=== PATIENT | female | born 1935 | race Caucasian/White ===

== ENCOUNTER → 2016-09-03 | Outpatient (CLI) | payer OTHER ==
[~2016-09-03] MED LIST: ASPCH81X PO; B COCAP3 PO; CEPH500C PO; CHOL1CAP57 PO; EPP3/2 IM; LORA-741 PO; LOSA50TA6 PO; MISCCAP80 PO; OMEP40CA PO; PRVC/40 PO; TRAM-10 PO
== END | disposition home or self-care (01) ==
LOC: C.LABSPEC 17:15
PROVIDERS: ATTEND Nurse Practitioner Adult Health
DX: R32 Unspecified urinary incontinence (principal)

== ENCOUNTER → 2016-10-01 | Outpatient (CLI) | payer OTHER ==
--- NOTE | 2016-10-01 09:51 | DIAGNOSTIC IMAGING REPORT ---
MRI LUMBAR SPINE W/O CONTRAST CLINICAL HISTORY: Severe low back pain with right leg radiculopathy. TECHNIQUE: Sagittal and axial T1, T2 and STIR images were obtained. The patient was imaged under 0.7 Jodi open MRI scanner COMPARISON STUDY: Conventional radiographic study the lumbar spine dated 08/04/2016 OBSERVATIONS: There is a superior endplate L1 compression deformity with T1 and T2 weighted marrow edema. The findings are consistent with acute/subacute fracture. The vertebral body has lost approximately one third of its height centrally. There is very minimal retropulsion with no spinal canal compromise L1-2: No disc protrusions or extrusions. No evidence of spinal canal or neural foraminal compromise. L2-3: There is facet joint arthropathy with indentation of the posterior lateral aspect the thecal sac. No disc herniations are visualized. There is no foraminal stenosis L3-4: There is facet joint arthropathy with mild indentation the posterior lateral aspects of the thecal sac. There is no focal herniation. There is no foraminal narrowing. L4-5: There is a grade 1 spondylolisthesis of L4 on L5. No focal herniations are visualized. There is no significant spinal or foraminal stenosis. L5-S1: There is no focal herniation. There is no spinal or foraminal stenosis. 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 The conus medullaris and cauda equina appear normal. IMPRESSION: 1. Acute/subacute superior endplate L1 compression fracture 2. Mild multilevel spondylitic changes. 3. No focal disc herniations identified Electronically signed by: Alvarado Singleton M.D. 10/01/2016 9:50 AM Dictated Date/Time: 10/01/2016 9:42 AM
== END | disposition home or self-care (01) ==
LOC: C.OPENMRI 08:38
PROVIDERS: ATTEND Pain Medicine Interventional Pain Medicine
DX: M48.06 Spinal stenosis, lumbar region (principal); S32.010A Wedge compression fracture of first lumbar vertebra, initial encounter for closed fracture; X58.XXXA Exposure to other specified factors, initial encounter

== ENCOUNTER → 2016-11-05 | Outpatient (CLI) | payer OTHER ==
[2016-11-05 12:58] LABS: ALT/SGPT 27 U/L (12-78); BLOOD UREA NITROGEN 25 mg/dl (7-18); BUN/CREATININE RATIO 28.8 (10-20); CALCIUM 8.9 mg/dl (8.5-10.1); CARBON DIOXIDE 25 mmol/L (21-32); CHLORIDE 112 mmol/L (98-107); CHOLESTEROL 178 mg/dl (0-200); CREATININE 0.88 mg/dl (0.60-1.20); GLUCOSE 77 mg/dl (70-99); POTASSIUM 3.7 mmol/L (3.5-5.1); SODIUM 146 mmol/L (136-145); TRIGLYCERIDES 141 mg/dl (0-150); VERY LOW DENSITY LIPOPROT CALC 28 mg/dl
[2016-11-05 13:04] LABS: ALKALINE PHOSPHATASE 63 U/L (45-117); AST/SGOT 12 U/L (15-37); CHOLESTEROL/HDL RATIO 4.3; HDL CHOLESTEROL 41 mg/dl; LDL CHOLESTEROL CALCULATED 109 mg/dl
== END | disposition home or self-care (01) ==
LOC: C.LABBFT 08:15
PROVIDERS: ATTEND Internal Medicine
DX: I10 Essential (primary) hypertension (principal); E78.5 Hyperlipidemia, unspecified

== ENCOUNTER → 2016-12-24 | Outpatient (CLI) | payer OTHER ==
--- NOTE | 2016-12-24 14:53 | MAMMOGRAPHY REPORT ---
UNILATERAL RIGHT DIGITAL DIAGNOSTIC MAMMOGRAM TOMOSYNTHESIS WITH CAD: 12/24/2016 CLINICAL HISTORY: 6 Month Follow-up Right. TECHNIQUE: Breast tomosynthesis in addition to standard 2D mammography was performed. Current study was also evaluated with a Computer Aided Detection (CAD) system. Right CC and MLO 2-D and tomosynt hesis images were obtained. COMPARISON: Comparison is made to exams dated: 06/25/2016 ultrasound, 06/25/2016 mammogram, 06/12/20 16 mammogram, and 10/17/2010 mammogram - [facility]. BREAST COMPOSITION: There are scattered areas of fibroglandular density in the right breast. FINDINGS: The previously described asymmetry seen within the right lateral breast on the cc view is less prominent on the current exam, and has the appearance of normal fibroglandular tissue on the to mosynthesis images. The remainder of the right breast is stable compared to prior exams, without watts spicious masses, calcifications, or areas of architectural distortion noted. IMPRESSION: ACR BI-RADS CATEGORY 2: BENIGN The right lateral breast asymmetry is less prominent on the current exam, and is benign and compatib le with normal fibroglandular tissue. There is no mammographic evidence of malignancy. Return to an nual mammogram screening schedule is recommended, due June 2017. The patient has been verbally notified of the results. Approximately 10% of breast cancers are not detected with mammography. A negative mammographic repor t should not delay biopsy if a clinically suggestive mass is present. Sandrine Stevens M.D. ah/:12/24/2016 09:21:08 Tree Scout: Catie VARELA(Navin)(Gianni), [facility] letter sent: Normal 1/2 BI-RADS Code: ACR BI-RADS Category 2: Benign
== END | disposition home or self-care (01) ==
LOC: C.MAMM 08:59
PROVIDERS: ATTEND Internal Medicine
DX: Z09 Encounter for follow-up examination after completed treatment for conditions other than malignant neoplasm (principal); N64.89 Other specified disorders of breast

== ENCOUNTER 2017-03-02 16:39 | Emergency (ER) | payer OTHER ==
[~2017-03-02] VITALS: Ht 171.5 cm; Wt 84.0 kg
[~2017-03-02 16:39] MED LIST changes: -CEPH500C PO
[2017-03-02 16:52] VITALS: Ht 171.5 cm; Wt 84.0 kg
[2017-03-02] MEDS ORDERED: ASPIRIN 81 MG CHEW PO STA (17:30)
[2017-03-02] MEDS ORDERED: NITROGLYCERIN 0.3 MG/1 TAB 100 TAB BTL SL PRN (17:30)
[2017-03-02] MEDS ORDERED: ONDANSETRON INJ 2 MG/ML 2 ML VIAL IV STA (17:36)
[2017-03-02] MEDS ORDERED: SODIUM CHLORIDE 0.9% 1000ML 1,000 ML IV STA (17:36)
--- NOTE | 2017-03-02 17:38 | EMERGENCY ROOM VISIT NOTE ---
History Report prepared by Daquan: Zenaida Cortes Under the Supervision of: Dr. Suzy Ortega M.D. First contact with patient: 17:24 Chief Complaint: ABDOMINAL PAIN Stated Complaint: RIGHT LOWER STOMACH PAIN - HEART BURN Nursing Triage Summary: Patient sent from Dr Bernabe's office for evaluation states she went in states she is having lower abd pain and heartburn all weekend. Was told her EKG is abnormal Patient rates abd pain an 8/10 History of Present Illness The patient is a 81 year old female who presents to the Emergency Room with complaints of RLQ abdominal pain beginning 3 days ago. The patient states that over the weekend she was not feeling well and had some abdominal pain and chest pain that felt like heart burn. She states that the chest pain is intermittent and occurs immediately after eating and TUMS relieve her pain. She notes that she has a history of acid reflux and last took Omeprazole 2 hours ago. The patient states that she has a history of IBS and is not sure if her lower abdominal pain is from her IBS. She notes that she has a history of melanoma beginning when she was 20 and hypertension and is on medication. She reports that she recently had a melanoma removed on her right ankle. The patient reports that she had an EKG done at her PCP office prior to coming in today and her heart was skipping. She notes that she has a history of hysterectomy and appendectomy and her last normal bowel movement was this morning. Source of History: patient Onset: 3 days ago Position: abdomen (RLQ) Timing: constant Associated Symptoms: + chest pain Review of Systems See HPI for pertinent positives & negatives. A total of 10 systems reviewed and were otherwise negative. Past Medical & Surgical Medical Problems: (1) Abdominal pain (2) CAD (coronary artery disease) (3) Colitis (4) GI bleed (5) IBS (irritable bowel syndrome) Surgical Problems: (1) History of right hip replacement Family History Patient reports no known family medical history. Social History Smoking Status: Never Smoker Alcohol Use: occasionally Marital Status: single Occupation Status: retired Current/Historical Medications Scheduled Aspirin (Aspirin Chewable), 81 MG PO QPM B Complex W/ C (Vitamin B Complex-C), 1 TAB PO QAM Cephalexin Monohydrate (Keflex), 500 MG PO TID Cholecalciferol (Vitamin D3), 1 TAB PO QAM Epinephrine (Epipen), 0.3 MG IM UD Losartan Potassium (Cozaar), 50 MG PO QAM Omeprazole (Prilosec), 40 MG PO DAILY Pravastatin Sod (Pravastatin Sodium), 20 MG PO HS Probiotic Product (Probiotic), 1 CAP PO QAM Scheduled PRN Lorazepam (Ativan), 0.5 MG PO HS PRN for Anxiety Tramadol (Ultram), 25-50 MG PO Q4H PRN for Pain Allergies Coded Allergies: BEE STING (Verified Allergy, Severe, ANAPHYLAXIS, 08/04/16) Wasp (Verified Allergy, Severe, ANAPHYLAXIS, 03/02/17) Baclofen (Verified Allergy, Intermediate, HIVES, 03/02/17) Adhesives (Verified Allergy, Unknown, RASH AND REDDENED, 03/02/17) Meperidine (Verified Allergy, Unknown, DEMEROL - GI UPSET, 03/02/17) Phenytoin (Verified Allergy, Unknown, DILANTIN - HIVES, 03/02/17) Sulfa Antibiotics (Verified Allergy, Unknown, HIVES, 03/02/17) Sulindac (Verified Allergy, Unknown, GI UPSET, 08/04/16) NSAIDs (Verified Adverse Reaction, Intermediate, GI INTOLERANCE, 03/02/17) Indomethacin (Verified Adverse Reaction, Unknown, INDOCIN - HALLUCINATIONS , 03/02/17) Uncoded Allergies: WHITE FACED HORNETS (Allergy, Severe, ANAPHYLAXIS, 09/24/15) Physical Exam Vital Signs Date Time Temp Pulse Resp B/P (MAP) Pulse Ox O2 Delivery O2 Flow Rate FiO2 03/02/17 19:46 36.4 62 18 167/87 98 03/02/17 19:38 18 167/87 03/02/17 18:14 62 16 03/02/17 18:09 58 20 03/02/17 18:04 61 19 03/02/17 18:01 135/78 03/02/17 17:59 67 18 03/02/17 17:54 67 18 03/02/17 17:39 67 190/87 03/02/17 17:34 63 03/02/17 17:33 62 03/02/17 16:52 36.4 67 20 187/73 98 Room Air Physical Exam Vital signs reviewed. General: Well-appearing female, in no significant distress. HEENT: No scleral icterus, PERRLA, neck supple. Atraumatic. Cardiovascular: Regular rate and rhythm, no extra sounds. Pulmonary: Clear to auscultation bilaterally, normal work of breathing. Abdomen: Soft, tender to palpation in the RLQ, some guarding, no rebound, nondistended, positive bowel sounds. Musculoskeletal: Atraumatic, no peripheral edema. Neurologic: Patient awake alert and oriented x 3, full strength in all 4 extremities. Cranial nerves 2 through 12 grossly intact. Skin: Warm, dry, no rash Medical Decision & Procedures ER Provider Diagnostic Interpretation: Radiology results as stated below per my review and radiologist interpretation: SINGLE VIEW CHEST FINDINGS: An AP, portable, upright chest radiograph is compared to study dated 04/15/2012. The examination is degraded by portable technique and patient rotation. The cardiomediastinal silhouette is unremarkable. Chronic interstitial thickening is unchanged from previous. The lungs and pleural spaces are clear. No pneumothorax is seen. The skeletal structures are osteopenic. The bony thorax is grossly intact. IMPRESSION: No active disease in the chest. Electronically signed by: Tomasz Gonzales M.D. 03/02/2017 5:53 PM Dictated Date/Time: 03/02/2017 5:52 PM ULTRASOUND RIGHT UPPER QUADRANT ABDOMEN TECHNIQUE: Real-time, grayscale, and color flow sonography of the right upper quadrant of the abdomen was performed. Images are reviewed in the transverse and longitudinal planes. FINDINGS: Liver: The liver is normal in size and somewhat heterogeneous and echotexture. There is no intrahepatic biliary ductal dilatation. The main portal vein is patent. Gallbladder: Small calcified gallstones are noted. The gallbladder is otherwise normal in appearance. There is no gallbladder wall thickening or pericholecystic fluid. A sonographic Collado's sign is reportedly absent. The common bile duct measures up to 0.6 cm in diameter. Pancreas: Visualized portions of the pancreatic head and body are normal in appearance. The splenic vein is patent. Right kidney: Survey images of the right kidney demonstrate cortical atrophy. There is no hydronephrosis. Ascites: None. IMPRESSION: Cholelithiasis without sonographic evidence of acute cholecystitis. Electronically signed by: Tomasz Gonzales M.D. 03/02/2017 7:06 PM Dictated Date/Time: 03/02/2017 7:[address] SCAN OF THE ABDOMEN AND PELVIS WITH IV CONTRAST FINDINGS: Lung bases: The heart is normal in size and without pericardial effusion. There are coronary artery calcifications. A tiny hiatal hernia is identified. Dependent atelectasis is observed. There is no airspace consolidation or pleural effusion. Small calcified granulomas are incidentally noted. Liver: The contrast-enhanced liver is normal in size, contour, and attenuation. Fatty infiltration is seen adjacent to the falciform ligament. There is no intrahepatic biliary ductal dilatation. There is a 1.2 cm hypervascular lesion in the right lobe of liver seen on axial image #48. This is unchanged from 2009 and likely reflects a small flash filling hemangioma. This is of doubtful significance. The hepatic veins and portal veins are patent. Gallbladder: Small calcified gallstones are identified. There is no CT evidence of cholecystitis. Spleen: Normal in size and attenuation. There are numerous small calcified splenic granulomas. Pancreas: Atrophic. Adrenal glands: Unremarkable. Kidneys: The contrast enhanced kidneys demonstrate cortical atrophy and are without hydronephrosis. Small extrarenal pelvises are seen bilaterally. The kidneys enhance symmetrically. Abdominal vasculature: The abdominal aorta is normal in course and caliber noting moderate to advanced atherosclerotic calcification. Bowel: The small bowel and colon are normal in course and caliber. There is advanced sigmoid diverticulosis without CT evidence of acute diverticulitis. Colonic fecal retention is observed. The appendix is not identified and reported surgically absent. Peritoneum: There is no intraperitoneal free air or abdominal ascites. There is a small volume of free fluid in the pelvis. Lymphadenopathy: None. Pelvic viscera: Evaluation of the pelvis is significantly degraded by streak artifact from a right hip arthroplasty. Although decompressed, the bladder wall appears thickened and hyperemic. Pericystic stranding is noted. This suggests cystitis. The uterus is surgically absent. No adnexal lesion is seen Skeletal structures: The Skeletal structures are osteopenic. No lytic or blastic bony lesions are seen. A right hip arthroplasty is in place. There is moderate lumbosacral spondylosis. There is a mild superior endplate compression fracture of L1. This is new from 09/26/2015. Advanced degenerative change is present in the left hip. IMPRESSION: 1. Findings suggest cystitis. Correlation with clinical findings and urinalysis will be required. 2. There is a mild superior endplate compression fracture of L1. This is new from 09/26/2015 and likely acute to subacute. No retropulsed fragments are identified. 3. Cholelithiasis. 4. Advanced sigmoid diverticulosis without CT evidence of acute sigmoid diverticulitis. 5. Additional changes as detailed above. Electronically signed by: Tomasz Gonzales M.D. 03/02/2017 6:39 PM Dictated Date/Time: 03/02/2017 6:32 PM Laboratory Results 03/02/17 16:20 Red Blood Count 4.67, Mean Corpuscular Volume 94.6, Mean Corpuscular Hemoglobin 32.3, Mean Corpuscular Hemoglobin Concent 34.2, Mean Platelet Volume 9.6, Neutrophils (%) (Auto) 52.6, Lymphocytes (%) (Auto) 35.5, Monocytes (%) (Auto) 8.9, Eosinophils (%) (Auto) 1.9, Basophils (%) (Auto) 0.9, Neutrophils # (Auto) 3.03, Lymphocytes # (Auto) 2.04, Monocytes # (Auto) 0.51, Eosinophils # (Auto) 0.11, Basophils # (Auto) 0.05 03/02/17 16:20 Test 03/02/17 16:20 03/02/17 17:50 White Blood Count 5.75 K/uL (4.8-10.8) Red Blood Count 4.67 M/uL (4.2-5.4) Hemoglobin 15.1 g/dL (12.0-16.0) Hematocrit 44.2 % (37-47) Mean Corpuscular Volume 94.6 fL (80-100) Mean Corpuscular Hemoglobin 32.3 pg (25-34) Mean Corpuscular Hemoglobin Concent 34.2 g/dl (32-36) Platelet Count 246 K/uL (130-400) Mean Platelet Volume 9.6 fL (7.4-10.4) Neutrophils (%) (Auto) 52.6 % Lymphocytes (%) (Auto) 35.5 % Monocytes (%) (Auto) 8.9 % Eosinophils (%) (Auto) 1.9 % Basophils (%) (Auto) 0.9 % Neutrophils # (Auto) 3.03 K/uL (1.4-6.5) Lymphocytes # (Auto) 2.04 K/uL (1.2-3.4) Monocytes # (Auto) 0.51 K/uL (0.11-0.59) Eosinophils # (Auto) 0.11 K/uL (0-0.5) Basophils # (Auto) 0.05 K/uL (0-0.2) RDW Standard Deviation 44.5 fL (36.4-46.3) RDW Coefficient of Variation 13.0 % (11.5-14.5) Immature Granulocyte % (Auto) 0.2 % Immature Granulocyte # (Auto) 0.01 K/uL (0.00-0.02) Anion Gap 7.0 mmol/L (3-11) Est Creatinine Clear Calc Drug Dose 51.8 ml/min Estimated GFR () 62.8 Estimated GFR (Non- 54.2 BUN/Creatinine Ratio 17.6 (10-20) Calcium Level 9.1 mg/dl (8.5-10.1) Magnesium Level 2.4 mg/dl (1.8-2.4) Total Bilirubin 0.5 mg/dl (0.2-1) Direct Bilirubin < 0.1 mg/dl (0-0.2) Aspartate Amino Transf (AST/SGOT) 18 U/L (15-37) Alanine Aminotransferase (ALT/SGPT) 29 U/L (12-78) Alkaline Phosphatase 68 U/L (45-117) Total Creatine Kinase 88 U/L (26-192) Creatine Kinase MB 1.7 ng/ml (0.5-3.6) Creatine Kinase MB Ratio 1.9 (0-3.0) Total Protein 7.5 gm/dl (6.4-8.2) Albumin 3.8 gm/dl (3.4-5.0) Thyroid Stimulating Hormone (TSH) 2.130 uIu/ml (0.300-4.500) Urine Color YELLOW Urine Appearance CLOUDY (CLEAR) Urine pH 5.5 (4.5-7.5) Urine Specific Ransom 1.014 (1.000-1.030) Urine Protein NEG (NEG) Urine Glucose (UA) NEG (NEG) Urine Ketones NEG (NEG) Urine Occult Blood 1+ (NEG) Urine Nitrite NEG (NEG) Urine Bilirubin NEG (NEG) Urine Urobilinogen NEG (NEG) Urine Leukocyte Esterase LARGE (NEG) Urine WBC (Auto) >30 /hpf (0-5) Urine RBC (Auto) 5-10 /hpf (0-4) Urine Hyaline Casts (Auto) 5-10 /lpf (0-5) Urine Epithelial Cells (Auto) 0-5 /lpf (0-5) Urine Bacteria (Auto) 2+ (NEG) Laboratory results per my review. Medications Administered Medications (Trade) Dose Ordered Sig/Erlin Route Start Time Stop Time Status Last Admin Dose Admin Aspirin (Aspirin Chew) 243 mg NOW STAT PO 03/02/17 17:30 03/02/17 17:33 DC 03/02/17 17:41 243 MG Sodium Chloride 1,000 ml @ 125 mls/hr Q8H STAT IV 03/02/17 17:36 03/02/17 20:28 DC 03/02/17 17:48 125 MLS/HR Ondansetron HCl (Zofran Inj) 4 mg NOW STAT IV 03/02/17 17:36 03/02/17 17:38 DC 03/02/17 17:46 4 MG Nitroglycerin (Nitrostat Tab) 0.4 mg STK-MED ONCE .ROUTE 03/02/17 17:42 03/02/17 17:43 DC 03/02/17 17:46 0.4 MG Ceftriaxone Sodium (Rocephin Inj) 1 gm NOW STAT IV 03/02/17 18:50 03/02/17 18:51 DC 03/02/17 19:07 1 GM ECG Indication: abdominal pain Rate (beats per minute): 62 Rhythm: normal sinus Findings: other (Nonspecific intraventricular delay, T waves upright in lateral leads) Change: Upright lateral T waves are new. ED Course 1724: Past medical records reviewed. The patient was evaluated in room A4B. A complete history and physical examination was performed. 1730: Nitroglycerin 0.3mg PRN SL Chest Pain, Aspirin 243 PO. 1736: Zofran Inj 4mg IV, Sodium Chloride 1000 ml @ 125 mls/hr IV. 1742: Nitroglygerin 0.4 PO, Nitroglycerin 0.4mg PO. 1850: Rocephin Inj 1gm IV. 3: Upon reevaluation, the patient appeared to have improvement of her symptoms. I discussed findings with the patient. She verbalized agreement of the treatment plan. The patient was discharged home. Medical Decision Differential diagnosis: Etiologies such as ACS, cardiac arrhythmia, appendicitis, diverticulitis, PUD, biliary pathology, UTI, pancreatitis, obstruction, mesenteric ischemia, aortic pathology, infections, inflammatory bowel disease, renal colic, as well as others were entertained. This patient was evaluated and appeared to be in no significant distress. IV access was obtained and laboratory work was drawn. The patient was placed on the engine monitor and found to be in a normal sinus rhythm. Patient was given 243 mg of aspirin to chew as she had had one baby aspirin previously. Laboratory work is fairly unrevealing, cardiac enzymes are normal. Chest x-ray is clear. UA is significant for infection will be sent for culture. The patient was given 1 g of IV ceftriaxone. She was feeling well enough for discharge, insisting she was going out for dinner with her daughter. Patient was discharged with a prescription for Keflex 500 mg 3 times daily for 7 days. She will follow-up with the primary care physician, drink plenty of fluids and return to the ER for worsening of symptoms or any medical concerns. Medication Reconcilliation Current Medication List: was personally reviewed by me Blood Pressure Screening Patient's blood pressure: Elevated blood pressure Blood pressure disposition: Referred to PCP Impression Primary Impression: UTI (urinary tract infection) Additional Impression: Atypical chest pain Scribe Attestation The scribe's documentation has been prepared under my direction and personally reviewed by me in its entirety. I confirm that the note above accurately reflects all work, treatment, procedures, and medical decision making performed by me. Departure Information Dispostion Home / Self-Care Prescriptions Cephalexin Monohydrate (Keflex) 500 Mg Cap 500 MG PO TID, #28 CAP Prov: Suzy Ortega M.D. 03/02/17 Referrals Pita Bernabe M.D. (PCP) Forms HOME CARE DOCUMENTATION FORM, IMPORTANT VISIT INFORMATION Patient Instructions My [facility], UTI Additional Instructions Diagnosis: UTI, atypical chest pain Keflex 500 mg 3 times daily for 7 days. Please drink plenty of clear fluids. Tylenol 650 mg every 6 hours as needed for pain. Return to the ER for worsening of symptoms or any medical concerns. Problem Qualifiers Primary Impression: UTI (urinary tract infection) Urinary tract infection type: acute cystitis Hematuria presence: without hematuria Qualified Codes: N30.00 - Acute cystitis without hematuria
[2017-03-02 17:41] LABS: BASO % 0.9 %; BASO ABS # 0.05 K/uL (0-0.2); COMPLETE YES; EOS % 1.9 %; HEMATOCRIT 44.2 % (37-47); IG% 0.2 %; LYMPH % 35.5 %; LYMPH ABS # 2.04 K/uL (1.2-3.4); MEAN CELL VOLUME 94.6 fL (80-100); MEAN CORPUSCULAR HEMOGLOBIN 32.3 pg (25-34); MEAN CORPUSCULAR HGB CONC 34.2 g/dl (32-36); MEAN PLATELET VOLUME 9.6 fL (7.4-10.4); MONO % 8.9 %; NEUT % 52.6 %; PLATELET COUNT 246 K/uL (130-400); RED BLOOD COUNT 4.67 M/uL (4.2-5.4); WHITE BLOOD COUNT 5.75 K/uL (4.8-10.8)
[2017-03-02] MEDS ORDERED: NITROGLYCERIN 0.4 MG SL PER TAB CHARGE ONE ×2 (17:42→17:43)
[2017-03-02] MEDS ORDERED: OPTIRAY 320 IV PRN (17:45)
--- NOTE | 2017-03-02 17:54 | DIAGNOSTIC IMAGING REPORT ---
SINGLE VIEW CHEST CLINICAL HISTORY: Atypical chest pain. FINDINGS: An AP, portable, upright chest radiograph is compared to study dated 04/15/2012. The examination is degraded by portable technique and patient rotation. The cardiomediastinal silhouette is unremarkable. Chronic interstitial thickening is unchanged from previous. The lungs and pleural spaces are clear. No pneumothorax is seen. The skeletal structures are osteopenic. The bony thorax is grossly intact. IMPRESSION: No active disease in the chest. Electronically signed by: Tomasz Gonzales M.D. 03/02/2017 5:53 PM Dictated Date/Time: 03/02/2017 5:52 PM
[2017-03-02 18:00] LABS: ALT/SGPT 29 U/L (12-78); AST/SGOT 18 U/L (15-37); BLOOD UREA NITROGEN 17 mg/dl (7-18); BUN/CREATININE RATIO 17.6 (10-20); CALCIUM 9.1 mg/dl (8.5-10.1); CARBON DIOXIDE 26 mmol/L (21-32); CHLORIDE 110 mmol/L (98-107); CREATININE 0.99 mg/dl (0.60-1.20); GLUCOSE 91 mg/dl (70-99); MAGNESIUM 2.4 mg/dl (1.8-2.4); SODIUM 143 mmol/L (136-145)
[2017-03-02 18:06] LABS: URINE APPEARANCE CLOUDY (CLEAR); URINE BILIRUBIN NEG (NEG); URINE COLOR YELLOW; URINE EPITHELIAL CELL AUTO 0-5 /lpf (0-5); URINE NITRITE NEG (NEG); URINE PH 5.5 (4.5-7.5); URINE SPECIFIC GRAVITY 1.014 (1.000-1.030); UROBILINOGEN NEG (NEG); ZZUR CULT IF INDIC CLEAN CATCH YES
[2017-03-02 18:09] LABS: MANUAL MICROSCOPIC REQUIRED? NO; REVIEW REQ? NO
[2017-03-02 18:11] LABS: ALKALINE PHOSPHATASE 68 U/L (45-117); CKMB/CK RATIO 1.9 (0-3.0)
--- NOTE | 2017-03-02 18:41 | DIAGNOSTIC IMAGING REPORT ---
CT SCAN OF THE ABDOMEN AND PELVIS WITH IV CONTRAST CLINICAL HISTORY: Right lower quadrant abdominal pain. COMPARISON STUDY: Abdominal CT dated 09/26/2015 and 04/03/2009. TECHNIQUE: Following the IV administration of 118 cc of Optiray 320, CT scan of the abdomen and pelvis is performed from the lung bases to the proximal femora. Images reviewed in the axial, sagittal, and coronal planes. IV contrast was administered without complication. CT DOSE: 837.93 mGy.cm FINDINGS: Lung bases: The heart is normal in size and without pericardial effusion. There are coronary artery calcifications. A tiny hiatal hernia is identified. Dependent atelectasis is observed. There is no airspace consolidation or pleural effusion. Small calcified granulomas are incidentally noted. Liver: The contrast-enhanced liver is normal in size, contour, and attenuation. Fatty infiltration is seen adjacent to the falciform ligament. There is no intrahepatic biliary ductal dilatation. There is a 1.2 cm hypervascular lesion in the right lobe of liver seen on axial image #48. This is unchanged from 2009 and likely reflects a small flash filling hemangioma. This is of doubtful significance. The hepatic veins and portal veins are patent. Gallbladder: Small calcified gallstones are identified. There is no CT evidence of cholecystitis. Spleen: Normal in size and attenuation. There are numerous small calcified splenic granulomas. Pancreas: Atrophic. Adrenal glands: Unremarkable. Kidneys: The contrast enhanced kidneys demonstrate cortical atrophy and are without hydronephrosis. Small extrarenal pelvises are seen bilaterally. The kidneys enhance symmetrically. Abdominal vasculature: The abdominal aorta is normal in course and caliber noting moderate to advanced atherosclerotic calcification. Bowel: The small bowel and colon are normal in course and caliber. There is advanced sigmoid diverticulosis without CT evidence of acute diverticulitis. Colonic fecal retention is observed. The appendix is not identified and reported surgically absent. Peritoneum: There is no intraperitoneal free air or abdominal ascites. There is a small volume of free fluid in the pelvis. Lymphadenopathy: None. Pelvic viscera: Evaluation of the pelvis is significantly degraded by streak artifact from a right hip arthroplasty. Although decompressed, the bladder wall appears thickened and hyperemic. Pericystic stranding is noted. This suggests cystitis. The uterus is surgically absent. No adnexal lesion is seen Skeletal structures: The Skeletal structures are osteopenic. No lytic or blastic bony lesions are seen. A right hip arthroplasty is in place. There is moderate lumbosacral spondylosis. There is a mild superior endplate compression fracture of L1. This is new from 09/26/2015. Advanced degenerative change is present in the left hip. IMPRESSION: 1. Findings suggest cystitis. Correlation with clinical findings and urinalysis will be required. 2. There is a mild superior endplate compression fracture of L1. This is new from 09/26/2015 and likely acute to subacute. No retropulsed fragments are identified. 3. Cholelithiasis. 4. Advanced sigmoid diverticulosis without CT evidence of acute sigmoid diverticulitis. 5. Additional changes as detailed above. Electronically signed by: Tomasz Gonzales M.D. 03/02/2017 6:39 PM Dictated Date/Time: 03/02/2017 6:32 PM
[2017-03-02] MEDS ORDERED: CEFTRIAXONE SOD INJ 1 GM ADDVIAL IV STA (18:50)
--- NOTE | 2017-03-02 19:07 | DIAGNOSTIC IMAGING REPORT ---
ULTRASOUND RIGHT UPPER QUADRANT ABDOMEN CLINICAL HISTORY: Right lower quadrant abdominal pain. COMPARISON STUDY: Abdominal CT dated 03/02/2017. TECHNIQUE: Real-time, grayscale, and color flow sonography of the right upper quadrant of the abdomen was performed. Images are reviewed in the transverse and longitudinal planes. FINDINGS: Liver: The liver is normal in size and somewhat heterogeneous and echotexture. There is no intrahepatic biliary ductal dilatation. The main portal vein is patent. Gallbladder: Small calcified gallstones are noted. The gallbladder is otherwise normal in appearance. There is no gallbladder wall thickening or pericholecystic fluid. A sonographic Collado's sign is reportedly absent. The common bile duct measures up to 0.6 cm in diameter. Pancreas: Visualized portions of the pancreatic head and body are normal in appearance. The splenic vein is patent. Right kidney: Survey images of the right kidney demonstrate cortical atrophy. There is no hydronephrosis. Ascites: None. IMPRESSION: Cholelithiasis without sonographic evidence of acute cholecystitis. Electronically signed by: Tomasz Gonzales M.D. 03/02/2017 7:06 PM Dictated Date/Time: 03/02/2017 7:04 PM
[2017-03-02] MEDS ORDERED: CEPH500C PO (19:15)
[2017-03-02 19:46] VITALS: BP 167/87; PULSE 62; TEMP 36.4; O2SAT 98
--- NOTE | 2017-03-04 14:18 | Pharmacy Progress Note ---
ED Pharmacist Culture FollowUp Date of Service: Mar 04, 2017. Patient was sent home with a prescription for cephalexin, which should cover the Klebsiella growing from the patient's urine culture, based on reported sensitivity to cefazolin.
== END 2017-03-02 19:47 | disposition home or self-care (01) ==
LOC: C.EDB 16:39 → C.EDA 19:47
DX: N30.00 Acute cystitis without hematuria (principal); Z79.899 Other long term (current) drug therapy; R10.32 Left lower quadrant pain; I10 Essential (primary) hypertension; I25.10 Atherosclerotic heart disease of native coronary artery without angina pectoris; K58.9 Irritable bowel syndrome, unspecified; Z79.82 Long term (current) use of aspirin; Z85.820 Personal history of malignant melanoma of skin; R07.89 Other chest pain

== ENCOUNTER → 2017-05-27 | Outpatient (CLI) | payer OTHER ==
[~2017-05-27] MED LIST changes: +CEPH500C PO
[2017-05-27 12:20] LABS: BASO % 0.1 %; BASO ABS # 0.01 K/uL (0-0.2); COMPLETE YES; HEMATOCRIT 41.8 % (37-47); IG% 0.3 %; LYMPH % 15.5 %; LYMPH ABS # 1.55 K/uL (1.2-3.4); MEAN CELL VOLUME 94.6 fL (80-100); MEAN CORPUSCULAR HEMOGLOBIN 31.9 pg (25-34); MEAN CORPUSCULAR HGB CONC 33.7 g/dl (32-36); MEAN PLATELET VOLUME 10.3 fL (7.4-10.4); MONO % 4.5 %; NEUT % 79.6 %; PLATELET COUNT 262 K/uL (130-400); RED BLOOD COUNT 4.42 M/uL (4.2-5.4); WHITE BLOOD COUNT 10.03 K/uL (4.8-10.8)
[2017-05-27 12:29] LABS: ALT/SGPT 34 U/L (12-78); BLOOD UREA NITROGEN 16 mg/dl (7-18); BUN/CREATININE RATIO 16.6 (10-20); CARBON DIOXIDE 23 mmol/L (21-32); CHLORIDE 109 mmol/L (98-107); CHOLESTEROL 181 mg/dl (0-200); CREATININE 0.97 mg/dl (0.60-1.20); GLUCOSE 129 mg/dl (70-99); SODIUM 142 mmol/L (136-145); TRIGLYCERIDES 101 mg/dl (0-150); VERY LOW DENSITY LIPOPROT CALC 20 mg/dl
[2017-05-27 12:33] LABS: ALB/GLOB RATIO 1.1 (0.9-2); ALKALINE PHOSPHATASE 63 U/L (45-117); AST/SGOT 21 U/L (15-37); CHOLESTEROL/HDL RATIO 3.9; HDL CHOLESTEROL 46 mg/dl; LDL CHOLESTEROL CALCULATED 115 mg/dl
== END | disposition home or self-care (01) ==
LOC: C.LABBFT 08:33
PROVIDERS: ATTEND Internal Medicine
DX: R10.31 Right lower quadrant pain (principal); I10 Essential (primary) hypertension; K58.9 Irritable bowel syndrome, unspecified; E78.5 Hyperlipidemia, unspecified; E87.6 Hypokalemia; R32 Unspecified urinary incontinence

== ENCOUNTER → 2017-09-29 | Outpatient (CLI) | payer OTHER ==
[~2017-09-29] MED LIST changes: -CEPH500C PO
[2017-09-29 13:11] LABS: HEMOGLOBIN A1C 5.4 % (4.5-5.6)
[2017-09-29 13:22] LABS: ALBUMIN 3.7 gm/dl (3.4-5.0); ALKALINE PHOSPHATASE 65 U/L (45-117); ALT/SGPT 34 U/L (12-78); AST/SGOT 20 U/L (15-37); BLOOD UREA NITROGEN 20 mg/dl (7-18); CARBON DIOXIDE 25 mmol/L (21-32); CREATININE 0.96 mg/dl (0.60-1.20); GLUCOSE 100 mg/dl (70-99); SODIUM 140 mmol/L (136-145)
[2017-09-29 13:23] LABS: TOTAL PROTEIN 7.6 gm/dl (6.4-8.2)
== END | disposition home or self-care (01) ==
LOC: C.LABBFT 10:24
PROVIDERS: ATTEND Internal Medicine
DX: Z00.00 Encounter for general adult medical examination without abnormal findings (principal); R73.01 Impaired fasting glucose; E78.5 Hyperlipidemia, unspecified; I10 Essential (primary) hypertension; E87.6 Hypokalemia

== ENCOUNTER → 2017-12-07 | Outpatient (CLI) | payer OTHER | END | disposition home or self-care (01) | LOC: C.LAB1850 14:39 | PROVIDERS: ATTEND Physician Assistant | DX: R32 Unspecified urinary incontinence (principal); R35.0 Frequency of micturition; R39.15 Urgency of urination ==

== ENCOUNTER 2019-10-16 14:39 | Observation (INO) ==
[2019-10-16] MEDS ORDERED: SODIUM CHLORIDE 0.9% 1000ML 1,000 ML IV SCH (15:15)
[2019-10-16 15:36] LABS: Appearance Urine Clear (Clear); Bilirubin Urine Negative (Negative); Blood Urine Negative (Negative); Color Urine Yellow; Glucose Urine UA Negative (Negative); Ketones Urine Trace (Negative); Leukocyte Esterase Urine Negative (Negative); Nitrite Urine Negative (Negative); Protein Urine Negative (Negative); Specific Gravity Urine 1.021 (1.000-1.030); Urobilinogen Urine Negative (Negative)
--- NOTE | 2019-10-16 16:00 | XRay Report ---
SINGLE VIEW CHEST CLINICAL HISTORY: Generalized weakness. FINDINGS: An AP, portable, upright chest radiograph is compared to study dated 12/23/2018. The cardiom ediastinal silhouette is unremarkable noting atherosclerotic calcification of the thoracic aorta. Chr onic interstitial thickening is similar to previous. There is mild bibasilar atelectasis. No airspace consolidation or large pleural effusion is identified. No pneumothorax is seen. The skeletal structu res are osteopenic. The bony thorax is grossly intact. IMPRESSION: No active disease in the chest. ACT 112: Negative or not required by law. Electronically signed by: Tomasz Gonzales M.D. 10/16/2019 3:58 PM
--- NOTE | 2019-10-16 16:34 | CT Scan Report ---
CT SCAN OF THE BRAIN WITHOUT IV CONTRAST CLINICAL HISTORY: Change in mental status. COMPARISON STUDY: CT of the brain dated 03/15/2016. TECHNIQUE: Unenhanced axial CT scan of the brain is performed from the vertex to the skull base. A do se lowering technique was utilized adhering to the principles of ALARA. CT DOSE: 537.48 mGy.cm FINDINGS: Brain parenchyma: There are age-related involutional changes noting moderate subcortical and periven tricular microangiopathic change. There is no hemorrhage, mass effect, or evidence of acute territori al ischemia by CT criteria. Cunha-white matter differentiation is preserved. No extra-axial fluid jocelynn ection is seen. Ventricles, sulci, cisterns: Prominent secondary to involutional change. Intracranial vasculature: There is atherosclerotic calcification of the cavernous carotid and vertebr al arteries. Calvarium: Unremarkable. Sinuses and mastoids: The visualized paranasal sinuses are clear. The mastoid air cells are well pneu matized. Orbits: The bony orbits are grossly intact. There are bilateral ocular lens implants. IMPRESSION: There is no hemorrhage, mass effect, or evidence of acute territorial ischemia by CT stephanie mccabe. ACT 112: Negative or not required by law. Electronically signed by: Tomasz Gonzales M.D. 10/16/2019 4:32 PM
[2019-10-16 16:37] LABS: INR 1.3 (0.9-1.1); Prothrombin Time 13.3 Seconds (9.0-12.0)
[2019-10-16 16:40] LABS: Hematocrit (blood only) 40.9 % (37-47); Mean Corpuscular Hemoglobin 31.8 pg (25-34); Mean Corpuscular Hgb Conc 34.2 g/dL (32-36); Mean Platelet Volume 10.9 fL (7.4-10.4); Platelet Count 227 K/uL (130-400); RDW Coefficient of Variation 13.4 % (11.5-14.5); RDW Standard Deviation 45.5 fL (36.4-46.3)
[2019-10-16 16:45] LABS: Alanine Aminotransferase 23 U/L (12-78); Albumin Level 3.5 gm/dl (3.4-5.0); Aspartate Aminotransferase 28 U/L (15-37); BUN Creatinine Ratio 15.8 (10-20); Blood Urea Nitrogen 14 mg/dl (7-18); Calcium 8.8 mg/dl (8.5-10.1); Carbon Dioxide 25 mmol/L (21-32); Chloride 110 mmol/L (98-107); Est GFR (African American) 72.4; Est GFR (Non-African American) 62.5; Glucose 78 mg/dl (70-99); Magnesium 2.2 mg/dl (1.8-2.4); Potassium 3.6 mmol/L (3.5-5.1); Sodium 142 mmol/L (136-145)
[2019-10-16 16:56] LABS: Albumin Globulin Ratio 0.9 (0.9-2); Alkaline Phosphatase 54 U/L (45-117); Bilirubin,Total 0.7 mg/dl (0.2-1); Total Protein 7.5 gm/dl (6.4-8.2); Troponin I < 0.015 ng/ml (0-0.045)
[2019-10-16 17:22] LABS: ANC (manual) 2.21 K/uL (1.4-6.5); Basophils # (manual) 0.05 K/uL (0-0.2); Basophils % (manual) 0.9 %; Eosinophils # (manual) 0.19 K/uL (0-0.5); Eosinophils % (manual) 3.5 %; Lymphocytes % (manual) 33.9 %; Monocytes # (manual) 0.23 K/uL (0.11-0.59); Monocytes % (manual) 4.3 %; Neutrophils # (manual) 2.21 K/uL (1.4-6.5); Neutrophils % (manual) 41.7 %; Reactive Lymphocytes # (manual) 0.83 K/uL; Reactive Lymphocytes % (manual) 15.7 %
--- NOTE | 2019-10-16 17:54 | History & Physical Report ---
Date of Service October 16, 2019 Assessment & Plan (1) Acute confusion: Admit to PCU on telemetry for observation, Vital signs every 4 hours, Monitor electrolytes and replenish, BNP pending, EKG normal sinus rhythm with right bundle branch block and T wave inversion evident in the lateral leads. TTE pending, Troponin x3 pending for T wave inversion in the lateral leads, Consider consulting cardiology if TTE abnormal or elevated troponin overnight and to discuss T wave inversion. MRI of the brain to evaluate for the confusion and rule out possible TIA or stroke. Stroke pathway without TPA for possible TIA or stroke. DVT prophylaxis SCDs and teds Full code Present on Admission?: Yes (2) Acute weakness: Physical and Occupational Therapy Present on Admission?: Yes (3) Impaired fasting glucose: A1c pending, controlled with ADA diabetic diet. Present on Admission?: Yes (4) Urinary incontinence: Patient does not complain of urinary incontinence at this time. She is completed course of treatment with amoxicillin 500 mg p.o. 4 times daily for 3 days for UTI. Her urine right now is clean and negative for urinary tract infection. Continue monitoring Present on Admission?: Yes (5) Hypertension: Blood pressure is elevated in the ER 175/82, patient denies focal signs, Continue monitoring blood pressure every 4 hours, Continue home medicine losartan 50 mg p.o. daily Present on Admission?: Yes (6) Hyperlipidemia: Fasting lipid panel pending. Patient is not on statins, her list of allergy does not report list of statin allergy. Consider starting atorvastatin based on fasting lipid panel. Present on Admission?: Yes (7) Gastroesophageal reflux disease without esophagitis: Continue pantoprazole 40 mg p.o. daily. History of Present Illness Chief Complaint: Confusion Primary Care Provider: Pita Bernabe MD The patient is a an 83 years old female with past medical history of GERD, hypertension, multiple allergies who was treated for urinary tract infection since October 11 and completed the course of treatment of amoxicillin 500 mg 4 times daily, and she was brought by her daughter to the emergency room because her daughter was complaining that patient is extremely confused to the point that she does not know where she is going where she is at and stating that she is undressed even though she is dressed. Patient appears to have intact remote memory with good recall but in current situation she is only oriented in person and place. Patient denies fever, chills, chest pain, shortness of breath, abdominal pain, frequency, urgency, syncope, near syncope. Patient denies recent travel or any sick contact. The labs are reviewed: WBC is 5.3, hemoglobin 14, hematocrit 40, platelets 227, PT 13.3, INR 1.3, sodium 142, potassium 3.6, chloride 110, carbon dioxide 25, anion gap 7, BUN 14, creatinine 0.87, GFR 62.5, glucose 78, calcium 8.8, magnesium 2.2, total bilirubin 0.7, AST 28, ALT 23, alkaline phosphatase 54, troponin 0.015, total protein 7.5, albumin 3.5, globulin 4, TSH 1.12. Urine all negative except for trace ketones. Chest x-ray show: Upright chest radiograph is compared to study from December 23, 2018. The cardiomediastinal silhouette is unremarkable noting atherosclerotic calcification of the thoracic aorta. Chronic interstitial thickening is similar to previous. There is mild bibasilar atelectasis. No airspace consolidation or large pleural effusion is identified. No pneumothorax is seen. The skeletal structures are osteopenic. The bony thorax is grossly intact. CT of the head without contrast shows there is no hemorrhage, mass affect, or evidence of acute territorial ischemia by CT criteria. There are age-related involutional changes noted moderate subcortical and periventricular microangiopathic changes. There is no hemorrhage, mass-effect or evidence of acute territorial ischemia by CT criteria. Cunha-white matter differentiation is preserved. No extra-axial fluid collection is seen. Was made to admit patient to PCU on telemetry for observation for confusion and generalized weakness. Allergies Allergy/AdvReac Type Severity Reaction Status Date / Time hornet venom Allergy Severe ANAPHYLAXIS Verified 09/14/19 09:48 baclofen Allergy Intermediate HIVES Verified 09/14/19 09:48 adhesive Allergy Unknown RASH AND Verified 09/14/19 09:48 REDDENED meperidine Allergy Unknown DEMEROL - Verified 09/14/19 09:48 GI UPSET phenytoin Allergy Unknown DILANTIN - Verified 09/14/19 09:48 HIVES Sulfa (Sulfonamide Allergy Unknown HIVES Verified 09/14/19 09:48 Antibiotics) sulindac Allergy Unknown GI UPSET Verified 09/14/19 09:48 acetaminophen [From Percocet] Allergy Verified 09/14/19 09:48 lactose Allergy Verified 0205/20 09:48 oxycodone [From Percocet] Allergy Verified 09/14/19 09:48 NSAIDS (Non-Steroidal AdvReac Intermediate GI Verified 09/14/19 09:48 Anti-Inflamma INTOLERANCE indomethacin AdvReac Unknown INDOCIN - Verified 09/14/19 09:48 HALLUCINATIONS WHITE FACED HORNETS Allergy Severe ANAPHYLAXIS Uncoded 09/14/19 09:48 Home Medications Home Medications Medication Instructions Recorded Confirmed Type Lactobacillus 1 cap PO DAILY cap 05/08/19 10/16/19 History acidophilus-Bifidobac.animalis 31 billion cell capsule epinephrine 0.3 mg/0.3 mL 0.3 ml IM DIRECTED PRN ea 05/08/19 10/16/19 History injection, auto-injector ascorbic acid (vitamin C) 500 mg 500 mg PO DAILY cap 05/10/19 10/16/19 History capsule pantoprazole 40 mg tablet,delayed 40 mg PO DAILY #90 tab 05/18/19 10/16/19 Rx release amoxicillin 500 mg capsule 2,000 mg PO .COMPLEX #20 cap 06/14/19 10/16/19 Rx losartan 50 mg tablet 50 mg PO DAILY #90 tab 08/15/19 10/16/19 Rx cholecalciferol (vitamin D3) 25 1,000 units PO DAILY #30 tab 09/18/19 10/16/19 Rx mcg (1,000 unit) tablet lorazepam 0.5 mg PO HS PRN 10/16/19 10/16/19 History Past Med/Surg History Medical History Actinic keratosis (Chronic) Anxiety (Chronic) Carotid artery stenosis, asymptomatic (Chronic) Cervical spondylosis (Chronic) Chronic rhinitis (Chronic) Colon polyp (Resolved) Compression fracture of L1 lumbar vertebra (Resolved) Cystocele, midline (Chronic) Diverticulosis (Chronic) Gastroesophageal reflux disease without esophagitis (Chronic) Hearing loss (Chronic) History of basal cell carcinoma (Resolved) Hyperlipidemia (Chronic) Hypertension (Chronic) IBS (irritable bowel syndrome) (Chronic) Impaired fasting glucose (Chronic) Internal hemorrhoids (Chronic) Lactose intolerance (Chronic) Lichen sclerosus et atrophicus (Chronic) Lumbar radiculopathy (Chronic) Personal history of malignant melanoma of skin (Resolved) Polyneuropathy (Chronic) Seborrheic keratosis (Chronic) 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) Urinary incontinence (Chronic) Venom-induced anaphylaxis (Chronic) Surgical History H/O colonoscopy S/P appendectomy S/P hip replacement S/P hysterectomy Family History Mother Myocardial infarction Denies family history of Colon cancer Ovarian cancer Prostate cancer Social History Preferred Language: Kinyarwanda Communication Ability: Effective Hearing Ability: Use of Hearing Aid Supervisor Film Processing Required: No Beliefs That Will Affect Care: None marital status: / Current Living Situation: Alone Current Living Situation Comment: lives at [facility], daughters nearby current occupational status: retired Other Information That Helps Us Care for You: No Feels Safe at Home: Yes Safety Concerns: Feels Safe At This Time Smoking Status: Former smoker Tobacco Type: cigarettes ; Age Quit Using Tobacco: 23 ; Do You Dip or Chew Tobacco: No ; Number of Years Since Quit: 60 ; Second Hand Exposure: No ; Tobacco Cessation Education Requested by Patient: No Hx Alcohol Use: Yes Alcohol type: beer and wine Alcohol Intake Frequency: Holidays/Special Occasions Hx Substance Use: No Childhood Exposure to Second-Hand Smoke: No Seatbelt Use: always Sunscreen Use: Yes Review of Systems Review of Systems: All systems reviewed & are unremarkable except as noted in HPI & below Physical Exam Constitutional: WD/WN, vitals as above well developed, + ill appearing, + thin and + cachectic Eyes: PERRL, conjunctivae normal, anicteric sclerae ENMT: external ear and nose normal, oropharynx normal Neck: trachea midline, no thyromegaly Respiratory: normal respiratory effort, lungs clear to auscultation Cardiovascular: RRR, no murmur, no edema Rate/Rhythm: regular rate and regular rhythm Heart Sounds: normal S1 and normal S2 Vessels: dorsalis pedis pulses present Gastrointestinal (Abdomen): normal bowel sounds, soft, nontender, no hepatosplenomegaly Musculoskeletal: no cyanosis or clubbing, extremities motor strength 5/5 Skin: no rashes, warm and dry Neurologic: PERRL, EOMI, accommodation nl, no face palsy, no dysarthria CN's II-XI intact bilaterally Psychiatric: Orientation: oriented to person and oriented to place Insight: + limited insight Judgement: + limited judgement Lymphatic: no cervical or axillary lymphadenopathy Results & Data Vital Signs (Past 12 Hours) Vital Signs Temp Pulse Pulse Resp BP BP Pulse Ox 10/16/19 16:43 64 17 175/82 H 98 10/16/19 16:21 100 10/16/19 14:45 36.7 C 74 20 134/80 97 Code Status & VTE Plan Code Status Full code VTE Prophylaxis Plan VTE Prophylaxis will be ordered: Yes PG Care Time/CCT Total # of Minutes Spent Total Time Spent with Patient: Total time spent is greater than 50% in coordination of care (as documented) at patient's floor/unit and/or counseling patient: Coding Level of Care Code 92499 Initial Inpt Care Lvl 3 Diagnoses Acute confusion R41.0 Acute weakness R53.1 Impaired fasting glucose R73.01 Urinary incontinence N39.41 Urinary Incontinence type: urge incontinence Hypertension I10 Hyperlipidemia E78.5 Gastroesophageal reflux disease without esophagitis K21.9 (1) Urinary incontinence Urinary Incontinence type: urge incontinence Qualified Code(s): N39.41 - Urge incontinence
--- NOTE | 2019-10-16 19:21 | Emergency Department Note ---
Entered by Valente Leonard acting as a scribe for History of Present Illness General Chief complaint: Confusion Stated complaint: CONFUSED - JUST HAD 2 BLADDER INFECTIONS Source: patient and family History of Present Illness Onset (ago): day(s) 4 Severity: moderate Pain Consistency: + intermittent Quality: + other (confusion) Associated symptoms: + denies other symptoms (cough, runny nose, sore throat, chest pain, burning with urination, pain with urination, new urgency to urinate, and any other physical pain) The patient is an 83 y/o female who presents to the ED w/ CC of intermittent, moderate, confusion beginning four days ago. The patient states she is totally confused. The patient's daughter reports the patient was confused between AM and PM four days ago and could not figure out what was going on. She notes the patient then was not able to work the TV and even after turning it on she said it was still off. The daughter states today the patient could not dress herself, and even once she helped the patient dress, the patient still said that she was not dressed. She reports the patient had a UTI last week and just finished her antibiotic, Cefdinir, around the time her confusion started. The patient's PCP is Dr. Srinivasa COOL. She denies cough, runny nose, sore throat, chest pain, burning with urination, pain with urination, new urgency to urinate, and any other physical pain. Home Medications Home Medications Medication Instructions Recorded Confirmed Type Lactobacillus 1 cap PO DAILY cap 05/08/19 10/16/19 History acidophilus-Bifidobac.animalis 31 billion cell capsule epinephrine 0.3 mg/0.3 mL 0.3 ml IM DIRECTED PRN ea 05/08/19 10/16/19 History injection, auto-injector ascorbic acid (vitamin C) 500 mg 500 mg PO DAILY cap 05/10/19 10/16/19 History capsule pantoprazole 40 mg tablet,delayed 40 mg PO DAILY #90 tab 05/18/19 10/16/19 Rx release amoxicillin 500 mg capsule 2,000 mg PO .COMPLEX #20 cap 06/14/19 10/16/19 Rx losartan 50 mg tablet 50 mg PO DAILY #90 tab 08/15/19 10/16/19 Rx cholecalciferol (vitamin D3) 25 1,000 units PO DAILY #30 tab 09/18/19 10/16/19 Rx mcg (1,000 unit) tablet lorazepam 0.5 mg PO HS PRN 10/16/19 10/16/19 History Allergies Allergy/AdvReac Type Severity Reaction Status Date / Time hornet venom Allergy Severe ANAPHYLAXIS Verified 09/14/19 09:48 baclofen Allergy Intermediate HIVES Verified 09/14/19 09:48 adhesive Allergy Unknown RASH AND Verified 09/14/19 09:48 REDDENED meperidine Allergy Unknown DEMEROL - Verified 09/14/19 09:48 GI UPSET phenytoin Allergy Unknown DILANTIN - Verified 09/14/19 09:48 HIVES Sulfa (Sulfonamide Allergy Unknown HIVES Verified 09/14/19 09:48 Antibiotics) sulindac Allergy Unknown GI UPSET Verified 09/14/19 09:48 acetaminophen [From Percocet] Allergy Verified 09/14/19 09:48 lactose Allergy Verified 09/14/19 09:48 oxycodone [From Percocet] Allergy Verified 09/14/19 09:48 NSAIDS (Non-Steroidal AdvReac Intermediate GI Verified 09/14/19 09:48 Anti-Inflamma INTOLERANCE indomethacin AdvReac Unknown INDOCIN - Verified 09/14/19 09:48 HALLUCINATIONS WHITE FACED HORNETS Allergy Severe ANAPHYLAXIS Uncoded 09/14/19 09:48 Past Med/Surg History Medical History Actinic keratosis (Chronic) Anxiety (Chronic) Carotid artery stenosis, asymptomatic (Chronic) Cervical spondylosis (Chronic) Chronic rhinitis (Chronic) Colon polyp (Resolved) Compression fracture of L1 lumbar vertebra (Resolved) Cystocele, midline (Chronic) Diverticulosis (Chronic) Gastroesophageal reflux disease without esophagitis (Chronic) Hearing loss (Chronic) History of basal cell carcinoma (Resolved) Hyperlipidemia (Chronic) Hypertension (Chronic) IBS (irritable bowel syndrome) (Chronic) Impaired fasting glucose (Chronic) Internal hemorrhoids (Chronic) Lactose intolerance (Chronic) Lichen sclerosus et atrophicus (Chronic) Lumbar radiculopathy (Chronic) Personal history of malignant melanoma of skin (Resolved) Polyneuropathy (Chronic) Seborrheic keratosis (Chronic) 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) Urinary incontinence (Chronic) Venom-induced anaphylaxis (Chronic) Surgical History H/O colonoscopy S/P appendectomy S/P hip replacement S/P hysterectomy Family History Mother Myocardial infarction Denies family history of Colon cancer Ovarian cancer Prostate cancer Social History Preferred Language: Pashto Communication Ability: Effective Hearing Ability: Use of Hearing Aid Outside Medical Sales Representative Required: No Beliefs That Will Affect Care: None marital status: / Current Living Situation: Alone Current Living Situation Comment: lives at [facility], daughters nearby current occupational status: retired Feels Safe at Home: Yes Smoking Status: Former smoker Tobacco Type: cigarettes ; Age Quit Using Tobacco: 23 ; Number of Years Since Quit: 60 ; Second Hand Exposure: No ; Hx Alcohol Use: Yes Alcohol type: beer and wine Alcohol Intake Frequency: Holidays/Special Occasions Hx Substance Use: No Childhood Exposure to Second-Hand Smoke: No Seatbelt Use: always Sunscreen Use: Yes Review of Systems See HPI for pertinent positives & negatives. and A total of 10 systems reviewed and were otherwise negative Physical Exam Vital Signs Vital Signs - 24 hr 10/16/19 14:45 10/16/19 16:21 10/16/19 16:43 Temperature 36.7 C Temperature Source Oral Pulse Rate 74 Pulse Rate [Apical] 64 Pulse Rhythm [Apical] Regular Respiratory Rate 20 17 Respiratory Effort / Characteristics Non-Labored Spontaneous Non-Labored Spontaneous Respiratory Depth Normal Respiratory Pattern Regular Blood Pressure 134/80 Blood Pressure [Right Arm] 175/82 H Blood Pressure Mean 98 Blood Pressure Mean [Right Arm] 113 Pulse Oximetry 97 100 98 Oxygen Delivery Method Room Air Room Air Room Air Sepsis Recent Fever Within 48 Hours No Sepsis New/Unexplained Change in Mental Status No Sepsis Action Taken by Nursing No Action Required GENERAL: alert, well nourished, no distress, non-toxic EYE EXAM: normal conjunctiva, PERRL and EOM's intact OROPHARYNX: no exudate, no erythema, lips, buccal mucosa, and tongue normal and mucous membranes are moist NECK: supple, no nuchal rigidity, no adenopathy, non-tender LUNGS: Clear to auscultation. Normal chest wall mechanics HEART: no murmurs, S1 normal and S2 normal ABDOMEN: abdomen soft, non-tender, normo-active bowel sounds, no masses, no rebound or guarding. BACK: Back is symmetrical on inspection and there is no deformity, no midline tenderness, no CVA tenderness. SKIN: no rashes and no bruising UPPER EXTREMITIES: upper extremities are grossly normal. LOWER EXTREMITIES: No pitting edema. NEURO EXAM: Normal sensorium, cranial nerves II-XII intact, normal speech, no weakness of arms, no weakness of legs. No drift. Finger to nose intact. Gross sensation intact. Course Course ED COURSE: Vital signs were reviewed and showed hypertension. The patients medical record was reviewed The above diagnostic studies were performed and reviewed. ED treatments and interventions as stated above. 1504: The patient was evaluated in room C04. A complete history and physical examination was performed. 1728: Upon reevaluation, the patient is resting. I discussed my findings with the patient and her family. They understand and agree with the treatment plan. 1732: I reviewed the patient's case with Dr. Smart, [facility] Hospitalist. She will evaluate the patient for further management. Based on the patients age, coexisting illnesses, exam and lab findings the decision to treat as an inpatient was made. The patient remained stable while under my care. The patient will be evaluated for further management. Administered Medications Discontinued Medications Sodium Chloride (Nss 1000ml) 1,000 mls @ 999 mls/hr IV .Q1H1M ROBERT Stop: 10/16/19 16:15 Last Infusion: 10/16/19 17:45 Dose: 0 mls/hr Documented by: [id number] Admin: 10/16/19 16:23 Dose: 999 mls/hr Documented by: [id number] Medical Decision Making Differential Diagnosis Differential diagnoses includes but is not limited to toxic, metabolic, infectious, traumatic, cardiac, neurologic, hematologic, psychiatric and inflammatory etiologies. Medical Records Attestation: I reviewed the patient's medical records. Home Medications Current Medication List: was personally reviewed by me Laboratory Data Attestation: I reviewed the patient's lab results. Result diagrams: 10/16/19 16:14 10/16/19 16:14 Lab Results 10/16/19 10/16/19 10/16/19 Range/Units 15:15 16:14 16:14 WBC 5.30 (4.8-10.8) K/uL RBC 4.40 (4.2-5.4) M/uL Hgb 14.0 (12.0-16.0) g/dL Hct 40.9 (37-47) % MCV 93.0 (80-100) fL MCH 31.8 (25-34) pg MCHC 34.2 (32-36) g/dL RDW Std Deviation 45.5 (36.4-46.3) fL RDW Coeff of Camilla 13.4 (11.5-14.5) % Plt Count 227 (130-400) K/uL MPV 10.9 H (7.4-10.4) fL Neutrophils % (Manual) 41.7 % Lymphocytes % (Manual) 33.9 % Reactive Lymphs % (Man) 15.7 % Monocytes % (Manual) 4.3 % Eosinophils % (Manual) 3.5 % Basophils % (Manual) 0.9 % Neutrophils # (Manual) 2.21 (1.4-6.5) K/uL Total Absolute Neuts 2.21 (1.4-6.5) K/uL Lymphocytes # (Manual) 1.80 (1.2-3.4) K/uL Reactive Lymphs # 0.83 K/uL Monocytes # (Manual) 0.23 (0.11-0.59) K/uL Eosinophils # (Manual) 0.19 (0-0.5) K/uL Basophils # (Manual) 0.05 (0-0.2) K/uL PT 13.3 H (9.0-12.0) Seconds INR 1.3 H (0.9-1.1) Sodium (136-145) mmol/L Potassium (3.5-5.1) mmol/L Chloride (98-107) mmol/L Carbon Dioxide (21-32) mmol/L Anion Gap (3-11) BUN (7-18) mg/dl Creatinine (0.6-1.2) mg/dl Est Cr Clr Drug Dosing Est GFR ( Amer) Est GFR (Non-Af Amer) BUN/Creatinine Ratio (10-20) Glucose (70-99) mg/dl Calcium (8.5-10.1) mg/dl Magnesium (1.8-2.4) mg/dl Total Bilirubin (0.2-1) mg/dl AST (15-37) U/L ALT (12-78) U/L Alkaline Phosphatase (45-117) U/L Troponin I (0-0.045) ng/ml Total Protein (6.4-8.2) gm/dl Albumin (3.4-5.0) gm/dl Globulin (2.5-4.0) gm/dl Albumin/Globulin Ratio (0.9-2) TSH (0.300-4.500) uIu/ml Urine Color Yellow Urine Appearance Clear (Clear) Urine pH 6.0 (4.5-7.5) Ur Specific Armona 1.021 (1.000-1.030) Urine Protein Negative (Negative) Urine Glucose (UA) Negative (Negative) Urine Ketones Trace H (Negative) Urine Blood Negative (Negative) Urine Nitrite Negative (Negative) Urine Bilirubin Negative (Negative) Urine Urobilinogen Negative (Negative) Ur Leukocyte Esterase Negative (Negative) 10/16/19 Range/Units 16:14 WBC (4.8-10.8) K/uL RBC (4.2-5.4) M/uL Hgb (12.0-16.0) g/dL Hct (37-47) % MCV (80-100) fL MCH (25-34) pg MCHC (32-36) g/dL RDW Std Deviation (36.4-46.3) fL RDW Coeff of Camilla (11.5-14.5) % Plt Count (130-400) K/uL MPV (7.4-10.4) fL Neutrophils % (Manual) % Lymphocytes % (Manual) % Reactive Lymphs % (Man) % Monocytes % (Manual) % Eosinophils % (Manual) % Basophils % (Manual) % Neutrophils # (Manual) (1.4-6.5) K/uL Total Absolute Neuts (1.4-6.5) K/uL Lymphocytes # (Manual) (1.2-3.4) K/uL Reactive Lymphs # K/uL Monocytes # (Manual) (0.11-0.59) K/uL Eosinophils # (Manual) (0-0.5) K/uL Basophils # (Manual) (0-0.2) K/uL PT (9.0-12.0) Seconds INR (0.9-1.1) Sodium 142 (136-145) mmol/L Potassium 3.6 (3.5-5.1) mmol/L Chloride 110 H (98-107) mmol/L Carbon Dioxide 25 (21-32) mmol/L Anion Gap 7.0 (3-11) BUN 14 (7-18) mg/dl Creatinine 0.87 (0.6-1.2) mg/dl Est Cr Clr Drug Dosing Not Reportable Est GFR ( Amer) 72.4 Est GFR (Non-Af Amer) 62.5 BUN/Creatinine Ratio 15.8 (10-20) Glucose 78 (70-99) mg/dl Calcium 8.8 (8.5-10.1) mg/dl Magnesium 2.2 (1.8-2.4) mg/dl Total Bilirubin 0.7 (0.2-1) mg/dl AST 28 (15-37) U/L ALT 23 (12-78) U/L Alkaline Phosphatase 54 (45-117) U/L Troponin I < 0.015 (0-0.045) ng/ml Total Protein 7.5 (6.4-8.2) gm/dl Albumin 3.5 (3.4-5.0) gm/dl Globulin 4.0 (2.5-4.0) gm/dl Albumin/Globulin Ratio 0.9 (0.9-2) TSH 1.120 (0.300-4.500) uIu/ml Urine Color Urine Appearance (Clear) Urine pH (4.5-7.5) Ur Specific Armona (1.000-1.030) Urine Protein (Negative) Urine Glucose (UA) (Negative) Urine Ketones (Negative) Urine Blood (Negative) Urine Nitrite (Negative) Urine Bilirubin (Negative) Urine Urobilinogen (Negative) Ur Leukocyte Esterase (Negative) Imaging Data Radiologist's Impression: Radiology results as stated below per my review and the radiologist's interpretation: SINGLE VIEW CHEST CLINICAL HISTORY: Generalized weakness. FINDINGS: An AP, portable, upright chest radiograph is compared to study dated 12/23/2018. The cardiomediastinal silhouette is unremarkable noting atherosclerotic calcification of the thoracic aorta. Chronic interstitial thick ening is similar to previous. There is mild bibasilar atelectasis. No airspace consolidation or large pleural effusion is identified. No pneumothorax is seen. The skeletal structures are osteopenic. The bony thorax is grossly intact. IMPRESSION: No active disease in the chest. ACT 112: Negative or not required by law. Electronically signed by: Tomasz Gonzales M.D. 10/16/2019 3:[address] SCAN OF THE BRAIN WITHOUT IV CONTRAST CLINICAL HISTORY: Change in mental status. COMPARISON STUDY: CT of the brain dated 03/15/2016. TECHNIQUE: Unenhanced axial CT scan of the brain is performed from the vertex to the skull base. A dose lowering technique was utilized adhering to the principles of ALARA. CT DOSE: 537.48 mGy.cm FINDINGS: Brain parenchyma: There are age-related involutional changes noting moderate subcortical and periventricular microangiopathic change. There is no hemorrhage, mass effect, or evidence of acute territorial ischemia by CT criteria. Cunha- white matter differentiation is preserved. No extra-axial fluid collection is seen. Ventricles, sulci, cisterns: Prominent secondary to involutional change. Intracranial vasculature: There is atherosclerotic calcification of the cavernous carotid and vertebral arteries. Calvarium: Unremarkable. Sinuses and mastoids: The visualized paranasal sinuses are clear. The mastoid air cells are well pneumatized. Orbits: The bony orbits are grossly intact. There are bilateral ocular lens implants. IMPRESSION: There is no hemorrhage, mass effect, or evidence of acute territorial ischemia by CT criteria. ACT 112: Negative or not required by law. Electronically signed by: Tomasz Gonzales M.D. 10/16/2019 4:32 PM ECG Data Attestation: I personally reviewed and interpreted this ECG as follows: Indication: + altered mental status Rate (beats per minute): 62 Rhythm: + sinus rhythm ECG Intervals/blocks: + Right Bundle branch block and + Normal QT-c ECG ST segments: + Nonspecific ST abnormalities (Highlateral and lateral) ECG Findings: no PVCs Comparison ECG Date: from (03/02/17) Change: no significant change Blood Pressure Blood Pressure Findings: Elevated blood pressure Blood Pressure Disposition: further management by hospitalist MAYELIN Castillo Continuous Cardiac Monitoring: An order was placed for continuous cardiac monitoring. The monitor shows a rate of 64 with a sinus rhythm. Patient is an 83-year-old female who presents the ER for confusion which has been present intermittently since Thursday. She is not knowing how to get dressed does not remember what is going on does not know the time a day. Currently oriented to person place and following commands. IV was established blood work was obtained showed no significant leukocytosis or anemia. INR was unremarkable. BMP with LFTs bilirubin troponin TSH was unremarkable. UA was negative. CT head was negative. Chest x-ray unremarkable. EKG unchanged. Patient was recently treated for UTI. Unclear if this is a partially treated UTI at this point but with her confusion did discuss with the hospitalist for observation as it has been present since Thursday. Impression & Plan Acute confusion, Acute weakness Discharge Plan Visit Data *Final* Discharge Date/Time: 10/16/19 18:54 Chief Complaint: Confusion Stated Complaint: CONFUSED - JUST HAD 2 BLADDER INFECTIONS ED Provider: Tu Larios Discharge Problem: Acute confusion, Acute weakness Patient Disposition: Admitted As Inpatient Discharge Instructions Interventions: ED Discharge Assessment Last Done: 10/16/19 18:54 The scribe's documentation has been prepared under my direction and personally reviewed by me in its entirety. I confirm that the note above accurately reflects all work, treatment, procedures, and medical decision making performed by me.
[2019-10-16] MEDS ORDERED: ALUMINUM/MAGNESIUM SUSP 30 ML UDC PO PRN (19:22)
[2019-10-16] MEDS ORDERED: LORazepam 0.5 MG TAB PO PRN (19:22)
[2019-10-16] MEDS ORDERED: PHARMACIST DISCHARGE MED REC CONSULT PRN (19:22)
[2019-10-16] MEDS ORDERED: MAGNESIUM HYDROXIDE SUSP 30 ML UDC PO PRN (19:22)
[2019-10-16] MEDS ORDERED: POLYETHYLENE (MIRALAX) 17 GM PACK PO PRN (19:22)
[2019-10-16] MEDS ORDERED: ONDANSETRON INJ 2 MG/ML 2 ML VIAL IV PRN (19:22)
[2019-10-16] MEDS: ASPIRIN 81 MG ECTAB PO SCH (20:49)
--- NOTE | 2019-10-16 20:59 | Magnetic Resonance Report ---
MRI OF THE BRAIN WITHOUT IV CONTRAST CLINICAL HISTORY: Change in mental status. COMPARISON STUDY: CT of the brain dated 10/16/2019. TECHNIQUE: MRI of the brain was performed utilizing various T1 and T2-weighted sequences in the axial , sagittal, and coronal planes. IV contrast was not administered for this examination. FINDINGS: Brain parenchyma: There is age-related involutional change noting moderate to advanced subcortical an d periventricular microangiopathic disease. There is no hemorrhage or mass effect. There is no restri cted diffusion to suggest acute ischemia. Cunha-white matter differentiation is preserved. No extra-ax ial fluid collection is seen. The cerebellar tonsils are normal in configuration. Ventricles, sulci, and cisterns: Prominent secondary to involutional change. Pituitary and sella: Partially empty sella is incidentally noted. Intracranial vasculature: Normal flow voids are maintained at the skull base. Orbits: The bony orbits are grossly intact. Orbital contents are normal in appearance noting bilatera l ocular lens implants. Sinuses and mastoids: There is trace mucosal thickening in the left maxillary antrum. The remaining p aranasal sinuses are clear. The mastoid air cells are well pneumatized. Calvarium: Unremarkable. Cervical cord: Partially visualized cervical spinal cord is normal in morphology and signal intensity . IMPRESSION: No acute intracranial abnormality. ACT 112: Negative or not required by law. Electronically signed by: Tomasz Gonzales M.D. 10/16/2019 8:58 PM
[2019-10-17 06:17] LABS: Estimated Average Glucose 105 mg/dl; Hemoglobin A1C 5.3 % (4.5-5.6)
[2019-10-17 06:25] LABS: Basophils # (auto) 0.06 K/uL (0-0.2); Basophils % (auto) 1.1 %; Eosinophils % (auto) 1.8 %; Hematocrit (blood only) 40.8 % (37-47); Hemoglobin 13.7 g/dL (12.0-16.0); Immature Granulocytes # (auto) 0.01 K/uL (0.00-0.02); Immature Granulocytes % (auto) 0.2 %; Lymphocytes # (auto) 2.15 K/uL (1.2-3.4); Lymphocytes % (auto) 39.1 %; Mean Corpuscular Hemoglobin 31.9 pg (25-34); Mean Corpuscular Hgb Conc 33.6 g/dL (32-36); Mean Corpuscular Volume 95.1 fL (80-100); Mean Platelet Volume 9.7 fL (7.4-10.4); Monocytes # (auto) 0.39 K/uL (0.11-0.59); Monocytes % (auto) 7.1 %; Neutrophils # (auto) 2.79 K/uL (1.4-6.5); Neutrophils % (auto) 50.7 %; Platelet Count 239 K/uL (130-400); RDW Coefficient of Variation 13.4 % (11.5-14.5); RDW Standard Deviation 46.4 fL (36.4-46.3); Red Blood Count 4.29 M/uL (4.2-5.4)
[2019-10-17 06:35] LABS: INR 1.1 (0.9-1.1); Partial Thromboplastin Ratio 1.1; Partial Thromboplastin Time 30.2 Seconds (21.0-31.0); Prothrombin Time 11.8 Seconds (9.0-12.0)
[2019-10-17 07:01] LABS: Chol HDL Ratio 6; Cholesterol 196 mg/dl (0-200); HDL Cholesterol 32 mg/dl; LDL Cholesterol Calculated 139 mg/dl; Triglycerides 126 mg/dl (0-150); VLDL Cholesterol 25 mg/dl
[2019-10-17] MEDS: ASPIRIN 81 MG ECTAB PO SCH (08:49)
[2019-10-17] MEDS ORDERED: LOSARTAN POTASSIUM 50 MG TAB PO SCH (09:00)
[2019-10-17] MEDS ORDERED: LACTOBACILLUS ACIDOPHILUS (FLORANEX) TAB PO SCH (09:00)
[2019-10-17] MEDS ORDERED: CHOLECALCIFEROL 1,000 UNITS 25 MCG TAB PO SCH (09:00)
[2019-10-17] MEDS ORDERED: ASCORBIC ACID 500 MG TAB PO SCH (09:00)
[2019-10-17] MEDS ORDERED: PANTOprazole 40 MG TAB PO SCH (09:00)
[2019-10-17 09:44] LABS: Influenza A virus by PCR Neg for Influ A (Neg); Influenza B virus by PCR Neg for Influ B (Neg)
--- NOTE | 2019-10-17 11:20 | XCELERA ---
[id number] \\[email or web address]\[id number]
--- NOTE | 2019-10-17 12:01 | CT Scan Report ---
CT SCAN OF THE ABDOMEN AND PELVIS WITHOUT CONTRAST CLINICAL HISTORY: Back and flank pain. Possible calculus. COMPARISON STUDY: 12/30/2018 TECHNIQUE: CT scan of the abdomen and pelvis was performed from the lung bases to the proximal femurs . Images are reviewed in the axial, sagittal, and coronal planes. IV contrast was not administered fo r this examination. A dose lowering technique was utilized adhering to the principles of ALARA. CT DOSE: 721.73 mGycm FINDINGS: Lower chest: The heart is normal in size and configuration, without pericardial effusion. The lung ba ses and pleural spaces are clear. Liver: The unenhanced liver is normal in size, contour, and attenuation. There is no intrahepatic kellie iary ductal dilatation. Gallbladder: Cholelithiasis Spleen: There are multiple splenic granulomas. Pancreas: Unremarkable. Adrenal glands: Unremarkable. Kidneys: No renal, ureteral, or bladder calculi are visualized. Bowel: There are no transition zones indicate bowel obstruction. By history the appendix is surgicall y absent. There is extensive sigmoid diverticulosis. Minor wall thickening is likely secondary to per idiverticular muscular hypertrophy. There is no current evidence of significant peridiverticular infl ammatory change. Peritoneum: There is no intraperitoneal free air or abdominal ascites. Vasculature: The abdominal aorta is normal in course and caliber. Adenopathy: None. Pelvic viscera: The uterus is surgically absent Skeletal structures: There are postsurgical changes of a total right hip arthroplasty. There are mode rate osteoarthritic changes within the left hip. There is an old L1 compression fracture. IMPRESSION: 1. No evidence of bowel obstruction. No evidence of free air 2. Moderately extensive sigmoid diverticulosis. No current evidence of acute diverticulitis 3. Postsurgical changes are prior appendectomy and hysterectomy 4. Cholelithiasis 5. No renal, ureteral, or bladder calculi identified. ACT 112: Negative or not required by law. Electronically signed by: Alvarado Singleton M.D. 10/17/2019 12:00 PM
--- NOTE | 2019-10-17 14:26 | Electrocardiogram Report ---
Test Reason : Blood Pressure : / mmHG Vent. Rate : 062 BPM Atrial Rate : 062 BPM P-R Int : 174 ms QRS Dur : 122 ms QT Int : 478 ms P-R-T Axes : 038 -07 115 degrees QTc Int : 485 ms Normal sinus rhythm Right bundle branch block Abnormal ECG When compared with ECG of 02-MAR-2017 17:32, T wave inversion less evident in Lateral leads Confirmed by Ty Raman ([id number]) on 10/17/2019 2:26:28 PM Referred By: REFERRED SELF Confirmed By:Ty Raman
--- NOTE | 2019-10-17 14:47 | Discharge Summary ---
Date of Service date of admission - October 16, 2019 date of discharge - October 17, 2019 Admission HPI Per Admitting Provider The patient is a an 83 years old female with past medical history of GERD, hypertension, multiple allergies who was treated for urinary tract infection since October 11 and completed the course of treatment of amoxicillin 500 mg 4 times daily, and she was brought by her daughter to the emergency room because her daughter was complaining that patient is extremely confused to the point that she does not know where she is going where she is at and stating that she is undressed even though she is dressed. Patient appears to have intact remote memory with good recall but in current situation she is only oriented in person and place. Patient denies fever, chills, chest pain, shortness of breath, abdominal pain, frequency, urgency, syncope, near syncope. Patient denies recent travel or any sick contact. The labs are reviewed: WBC is 5.3, hemoglobin 14, hematocrit 40, platelets 227, PT 13.3, INR 1.3, sodium 142, potassium 3.6, chloride 110, carbon dioxide 25, anion gap 7, BUN 14, creatinine 0.87, GFR 62.5, glucose 78, calcium 8.8, magnesium 2.2, total bilirubin 0.7, AST 28, ALT 23, alkaline phosphatase 54, troponin 0.015, total protein 7.5, albumin 3.5, globulin 4, TSH 1.12. Urine all negative except for trace ketones. Chest x-ray show: Upright chest radiograph is compared to study from December 23, 2018. The cardiomediastinal silhouette is unremarkable noting atherosclerotic calcification of the thoracic aorta. Chronic interstitial thickening is similar to previous. There is mild bibasilar atelectasis. No airspace consolidation or large pleural effusion is identified. No pneumothorax is seen. The skeletal structures are osteopenic. The bony thorax is grossly intact. CT of the head without contrast shows there is no hemorrhage, mass affect, or evidence of acute territorial ischemia by CT criteria. There are age-related involutional changes noted moderate subcortical and periventricular microangiopathic changes. There is no hemorrhage, mass-effect or evidence of acute territorial ischemia by CT criteria. [place]-white matter differentiation is preserved. No extra-axial fluid collection is seen. Was made to admit patient to PCU on telemetry for observation for confusion and generalized weakness. Principal Diagnosis likely metabolic encephalopathy/delirium due to recent UTI Discharge Exam Constitutional well developed and well nourished; no acute distress and no altered mental status ENMT external ear and nose normal, oropharynx normal Respiratory normal respiratory effort, lungs clear to auscultation Cardiovascular Rate/Rhythm: regular rate and regular rhythm Heart Sounds: normal S1 and normal S2; no murmur Vessels: posterior tibial pulses present and dorsalis pedis pulses present; no JVD Extremities: no edema Gastrointestinal (Abdomen) Inspection/Auscultation: normal bowel sounds; abdomen not distended Percussion/Palpation: + abdomen tender (slight - bottom of RLQ; mild left flank ) and abdomen soft; no hepatosplenomegaly Musculoskeletal Spine: + paraspinal tenderness (lumbar region ) Neurologic moves all extremities; no focal motor deficits Psychiatric Orientation: alert and oriented x 3 Discharge Data Allergies Allergy/AdvReac Type Severity Reaction Status Date / Time hornet venom Allergy Severe ANAPHYLAXIS Verified 09/14/19 09:48 baclofen Allergy Intermediate HIVES Verified 09/14/19 09:48 adhesive Allergy Unknown RASH AND Verified 09/14/19 09:48 REDDENED meperidine Allergy Unknown DEMEROL - Verified 09/14/19 09:48 GI UPSET phenytoin Allergy Unknown DILANTIN - Verified 09/14/19 09:48 HIVES Sulfa (Sulfonamide Allergy Unknown HIVES Verified 09/14/19 09:48 Antibiotics) sulindac Allergy Unknown GI UPSET Verified 09/14/19 09:48 acetaminophen [From Percocet] Allergy Verified 09/14/19 09:48 lactose Allergy Verified 09/14/19 09:48 oxycodone [From Percocet] Allergy Verified 09/14/19 09:48 NSAIDS (Non-Steroidal AdvReac Intermediate GI Verified 09/14/19 09:48 Anti-Inflamma INTOLERANCE indomethacin AdvReac Unknown INDOCIN - Verified 09/14/19 09:48 HALLUCINATIONS WHITE FACED HORNETS Allergy Severe ANAPHYLAXIS Uncoded 09/14/19 09:48 Consultations PT, OT Ordered Studies * CT head/brain - no acute process * MRI brain - no acute process; no acute or old stroke; no ICH * CT abd pelvis wo con - IMPRESSION: 1. No evidence of bowel obstruction. No evidence of free air 2. Moderately extensive sigmoid diverticulosis. No current evidence of acute diverticulitis 3. Postsurgical changes are prior appendectomy and hysterectomy 4. Cholelithiasis 5. No renal, ureteral, or bladder calculi identified. * echocardiogram - 1. EF 60-65% 2. moderate LVH 3. no significant valvular disease Hospital Course (1) Metabolic encephalopathy: The patient had developed mild confusion/delirium at her home in the face of a recent UTI. Symptoms were present, per family, for at least 1 week. Patient herself noted the confusion but was able to continue her ADLs at her home. During the hospitalization her confusion was largely resolved. She was a/o x 3 with intact recall of recent events. Extensive work-up for her confusion - CT head, MRI brain, labs, u/a, influenza PCR, CT abd/pelvis - were all negative/normal. The only abnormality seen during her brief stay was that of a single episode of SINUS PAUSE on telemetry. This occurred on the AM of 10/17/2019 and she was asymptomatic from such (no dizziness, lightheadedness, etc). The pause was 3.4 seconds in duration. The pause was NOT felt to be a contributor to her recent confusion at home. See below in "sinus pause." On the day of discharge I had a lengthy discussion with the patient's daughter regarding the confusion. The daughter mentioned that several family members have expressed that perhaps the patient's confusion is longer standing in duration (months or longer). If the latter is the case then perhaps Mrs Monge is developing a mild cognitive impairment condition. I encouraged the daughter that if any cognitive impairment persists over time then the patient should have neuropsychiatric testing at [facility] neurology. In meantime we will assume that the delirium in the last week was attributable to her recent UTI. (2) Sinus pause: Seen incidentally on the AM of 10/17/19. Lasted 3.4 seconds. NO symptoms from such. Patient and daughter informed of the pause. Echo was normal. She is not on any AV shavon agent. If patient were to have recurrent episodes of feeling faint, dizzy, or has discrete episodes of feeling extreme fatigue then consider outpatient 30-day event monitor to capture recurrent episodes of sinus pauses. Also would need cardiology evaluation. The sinus pause was NOT felt to have contributed to her acute confusion. (3) Hypertension: Controlled during the stay (4) UTI (urinary tract infection): Recent. Completed course of antibiotics prior to this hospitalization. Repeat u/a was normal suggesting resolution. (5) Common cold: CBC with diff showed predominance of lymphocytes. This was c/w her report of a URI in the week leading up to admission. She had no active URI symptoms while here, however. Chest x-ray failed to show pneumonia. Total Time Total Time Spent Total Time Spent (In Minutes): 45 Total Time Includes: Examination of the Patient, Discharge Planning and Medication Reconciliation Discharge Plan Discharge Items Patient Disposition: Home - Home Health Services Reason For Visit: CONFUSION Discharge Diagnosis: confusion ("delirium") likely due to recent UTI/urinary tract infection Activity: Resume your previous activity Non-emergency contact: Primary Care Provider Call non-emergency contact if: you have any medication questions and your symptoms worsen Follow-up/Referrals: Pita Bernabe MD [Primary Care Provider] - 10/20/19 9:00 am (see Dr Bernabe within 1 week Px notified of follow up appt @ discharge with DANI Noble) Diet: Heart Healthy Addtl Attending Provider Instructions: I believe that your recent confusion/thinking problem ("delirium") was likely due to the urinary tract infection. Delirium is common in the setting of infections especially in seniors. Pneumonia, UTI, influenza, etc all can cause delirium. The delirium typically resolves as the infection resolves. Sometimes the confusion can last for a week or so after the infection is gone as well. Your repeat urinalysis was normal; thus, the recent infection is gone. Your echocardiogram (heart ultrasound) was normal. Your MRI brain did NOT show old or new stroke. Your CT of the abdomen showed gallstones but the gallbladder otherwise did not look sick. You also have diverticular disease in your colon but the colon otherwise was not sick or inflamed. We did not find kidney stones either. Other labs were normal (your cbc showed evidence of a recent viral infection - in your case you had had a common cold last week). During your echocardiogram on the AM of 10/16 we noted a "pause" on your telemetry monitoring that lasted just shy of 3.5 seconds. It appears that you did not have symptoms with this pause. I spoke to a fundraising director and if you were to begin having episodes of extreme weakness, feeling faint, passing out, etc at that point we would obtain an outpatient 30-day heart monitor to look for more episodes of "pauses." Typically pauses do not cause delirium/confusion that lasts for days. We have made no changes in your medications. Follow-up - see separate section Return to [facility] if - * you have fevers over 100.5 degrees * you have weakness in either arm or leg * you have shortness of breath or chest pain * you have episodes of feeling faint or indeed you actually pass out * any other concerns Recommendations - * if you continue to have memory and/or thinking problems then this is NOT delirium but perhaps the beginning of a more chronic memory problem * if you develop this please ask Dr Bernabe for a referral to neurology for additional testing Pending Studies at Discharge: No Stand-Alone Forms: My [facility], Smoking Cessation Medications and DC Order Prescriptions: Continued pantoprazole 40 mg tablet,delayed release (DR/EC) 40 mg PO DAILY Qty: 90 RF: 1 amoxicillin 500 mg capsule 2,000 mg PO .COMPLEX Qty: 20 RF: 0 losartan 50 mg tablet 50 mg PO DAILY Qty: 90 RF: 1 cholecalciferol (vitamin D3) 25 mcg (1,000 unit) tablet 1,000 units PO DAILY Qty: 30 RF: 0 Lacto.acidophilus-Bif.animalis 31 billion cell capsule 1 cap PO DAILY RF: 0 epinephrine 0.3 mg/0.3 mL auto-injector 0.3 ml IM DIRECTED PRN (Reason: Allergic Reaction) RF: 0 ascorbic acid (vitamin C) 500 mg capsule 500 mg PO DAILY RF: 0 lorazepam 0.5 mg tablet 0.5 mg PO HS PRN (Reason: Sleep) RF: 0 Discharge Orders: Discharge Order (Routine); Ordered 10/17/19 Ordered By: Yeyo Conway Admission Data Admit Date/Time: 10/16/19 17:51 Attending Provider: Yeyo Conway Admit Provider: Eduardo Smart Primary Care Provider: Pita Bernabe Other Providers: Eduardo Smart ; [place] Other Interventions: Discharge Summary Assessment (RN) Last Done: 10/17/19 14:18 DC Date/Time DO NOT enter until pt leaves facility: 10/17/19 15:05 Coding Level of Care Code 69913 OBS Care - Discharge Diagnoses Metabolic encephalopathy G93.41 Sinus pause I45.5 Hypertension I10 UTI (urinary tract infection) N39.0 Common cold J00
== END 2019-10-17 15:05 | disposition home health service (06) ==
LOC: 2E 14:39 → ED 14:39 → SUATTDRO 17:51 → 2E 18:54